=== PATIENT | female | born 1965 | race Caucasian/White ===

== ENCOUNTER 2019-07-03 05:41 | Day surgery (SDC) | payer OTHER ==
[2019-06-28 14:36] VITALS: BMI 22.6
[2019-06-28 16:02] LABS: Hemoglobin 13.1 g/dL (12.0-16.0); Mean Corpuscular HGB CONC 33.2 g/dL (32.0-36.0); Mean Corpuscular Hemoglobin 34.1 pg (27.0-31.0); Mean Platelet Volume 6.5 fL (7.4-10.4); Platelet Count 504 thou/uL (130-400); RBC Distribution Width 12.1 % (11.5-14.5); Red Blood Cell (RBC) Count 3.85 mill/uL (4.20-5.40); White Blood Cell (WBC) Count 12.7 thou/uL (4.8-10.8)
[2019-07-03] MEDS ORDERED: CeleCOXIB 100 MG CAP ONE (06:21)
[2019-07-03] MEDS ORDERED: Gabapentin 300 MG CAP ONE (06:28)
[2019-07-03] MEDS ORDERED: Methylene Blue 50 MG/10 ML AMPUL ONE (06:47)
[2019-07-03] MEDS ORDERED: Albuterol Sulfate HFA (OR ONLY) ONE (06:58)
[2019-07-03] MEDS ORDERED: Fentanyl 100 MCG/2 ML VIAL ONE (07:06)
[2019-07-03] MEDS ORDERED: Ketorolac Tromethamine 30 MG/ML VIAL IVP PRN (08:32)
[2019-07-03] MEDS ORDERED: Meperidine HCl/PF 25 MG/ML VIAL SLOW IVP PRN (08:32)
[2019-07-03] MEDS ORDERED: Promethazine HCl 25 MG/ML VIAL SLOW IVP PRN (08:32)
[2019-07-03] MEDS ORDERED: Ondansetron HCl/PF 4 MG/2 ML Vial IVP PRN (08:32)
[2019-07-03] MEDS ORDERED: HYDROcodone/Acetaminophen 5/325 mg Tablet ONE (09:58)
[2019-07-03] MEDS ORDERED: Ondansetron PF 4 MG/2 ML Vial ONE (10:03)
[2019-07-03] MEDS ORDERED: PROPOFOL 200 MG/20 ML VIAL ONE (10:03)
[2019-07-03] MEDS ORDERED: EPHEDRINE 25 MG/5 ML SYRINGE ONE (10:03)
[2019-07-03] MEDS ORDERED: Dexamethasone 20 MG/5 ML VIAL ONE (10:03)
[2019-07-03] MEDS ORDERED: Lidocaine 1% PF 5 ML VIAL ONE (10:03)
[2019-07-03] MEDS ORDERED: PHENYLEPHRINE-NS 100 MCG/ML 10 ML SYRINGE ONE (10:03)
--- NOTE | 2019-07-03 13:37 | OP ---
DATE OF PROCEDURE: 07/03/2019 PREOPERATIVE DIAGNOSIS: Extrusion of vaginal mesh. POSTOPERATIVE DIAGNOSIS: Extrusion of vaginal mesh. [employer]SH [employer]GG[employer] OPERATOR: None. ANESTHESIA: Dr. Queen. COMPLICATIONS: None. ESTIMATED BLOOD LOSS: Less than 5 mL. PROCEDURE PERFORMED: Exam under anesthesia with removal of vaginal mesh. OPERATIVE FINDINGS: 1. Extrusion of vaginal mesh approximately 1 cm outside of the body anchored into the vaginal mucosa approximately 0.5 cm below the urethral meatus. 2. Well-epithelialized tissue underneath the removed mesh. 3. Healthy tissue edges. PROCEDURE IN DETAIL: The patient was taken back to the OR with IV fluids running. When she was in the OR, anesthesia was obtained. The vagina was then prepped and draped in normal fashion for gynecologic surgery. The surgeon was gowned and gloved. A Murphy catheter was placed through the urethra into the bladder using sterile technique. Just below the urethra, the vaginal mucosa was grasped with an Allis clamp and elevated for visualization of the extruding mesh. A weighted speculum was placed into the posterior aspect of the vagina. Calcified mesh fragments were grasped with an Allis clamp and came off in two large pieces. The base of the mesh was grasped by visualized permanent suture at the lateral edges and excised using Mckeon scissors. After all the visualized mesh was removed, the open lateral corners of the incision were explored with no other mesh palpable or suture material visualized. These edges and the epithelialized base were copiously irrigated and dry. Tissue appeared very healthy and there were no signs of infection or necrosis. The inferior edge of the vaginal mucosa was reapproximated with two interrupted 3-0 chromic plain gut sutures for reapproximation of these edges. There were no complications. The Murphy catheter was removed. All instrument counts and sponge counts were correct. The patient was then cleaned, dried, taken to the recovery room in good condition. Job ID: [id number]
== END 2019-07-03 10:00 | disposition home or self-care (01) ==
LOC: SDC 05:41 → EEVIPCON 15:15
PROVIDERS: ATTEND Obstetrics & Gynecology
PROC: 0UUG7JZ Supplement Vagina with Synthetic Substitute, Via Natural or Artificial Opening (ICD-10-PCS; principal; 2019-07-03)
DX: T83.721A Exposure of implanted vaginal mesh into vagina, initial encounter (principal); N76.0 Acute vaginitis; F43.10 Post-traumatic stress disorder, unspecified; F31.9 Bipolar disorder, unspecified; G47.00 Insomnia, unspecified; Z79.82 Long term (current) use of aspirin; Z79.899 Other long term (current) drug therapy; Z87.891 Personal history of nicotine dependence
CPT/HCPCS: 36415; 85027; 86850; 86900; 86901; J0690; J1100; J2001; J2405; J2704; J3010; Q9968